=== PATIENT | female | born 1975 | race Hispanic/Latino ===

== ENCOUNTER 2017-07-04 06:19 | Emergency (ER) | payer OTHER ==
[~2017-07-04] VITALS: Ht 152.4 cm; Wt 83.9 kg
[~2017-07-04 06:19] MED LIST: DYMISTA NASAL S23 GM
[2017-07-04] MEDS ORDERED: ONDANSETRON HCL 4 MG ORAL DISINTEGRATING TAB PO ONE (06:30)
[2017-07-04] MEDS ORDERED: ACETAMINOPHEN 325 MG TAB PO ONE (06:30)
== END 2017-07-04 07:52 | disposition home or self-care (01) ==
LOC: ER 06:19
DX: R50.9 Fever, unspecified (principal); R05 Cough; J10.1 Influenza due to other identified influenza virus with other respiratory manifestations
CPT/HCPCS: 87400; 99283